=== PATIENT | female | born 1980 | race Caucasian/White ===

== ENCOUNTER 2018-02-04 08:40 | Emergency (ER) | payer OTHER ==
[~2018-02-04] VITALS: Ht 165.1 cm; Wt 63.5 kg
[~2018-02-04 08:40] MED LIST: ATENOLOL 25 MG25 M1; ATENOLOL 50 MG50 M1 PO; NORCO 5-325 TA1 EACH PO; PENICILLIN V P500 MG PO; PENICILLIN VK500 M1 PO; PERCOCET 5-3251 EACH PO; SEASONALE1 EACH
[2018-02-04] MEDS ORDERED: ATENOLOL 50MG T50 M1 PO (10:39)
[2018-02-04] MEDS ORDERED: YASMIN 28 TABL1 EACH PO (10:40)
[2018-02-04] MEDS ORDERED: NORCO 5-325 TA1 EACH PO (11:14)
[2018-02-04] MEDS ORDERED: CYCLOBENZAPRINE5 MG PO (11:14)
[2018-02-04 11:32] VITALS: BP 116/70
== END 2018-02-04 11:32 | disposition home or self-care (01) ==
LOC: ER 08:40
DX: M54.6 Pain in thoracic spine (principal); Z90.49 Acquired absence of other specified parts of digestive tract; Z88.5 Allergy status to narcotic agent; Z88.8 Allergy status to other drugs, medicaments and biological substances

== ENCOUNTER 2018-07-18 20:39 | Emergency (ER) | payer OTHER ==
[~2018-07-18] VITALS: Ht 165.1 cm; Wt 72.6 kg
[~2018-07-18 20:39] MED LIST changes: +ATENOLOL 50MG T50 M1 PO; +CYCLOBENZAPRINE5 MG PO; +YASMIN 28 TABL1 EACH PO
[2018-07-18 21:42] LABS: ABSOLUTE NEUTROPHILS 2.3 thou/uL (1.4-8.2); BASOPHILS 0.5 % (0.0-2.0); EOSINOPHILS 1.7 % (0.0-3.0); HEMOGLOBIN 10.8 gm/dL (12.0-15.0); LYMPHOCYTES 53.2 % (24.0-44.0); MCH 37.4 pg (26.0-34.0); MCHC 34.9 g/dL (28.0-37.0); MCV 107.2 fL (80.0-100.0); MONOCYTES 10.1 % (1.0-8.0); PLATELET COUNT 229 thou/uL (150-400); POLYS 34.5 % (36.0-66.0); RBC 2.89 mil/uL (4.20-5.00); WBC 6.8 thou/uL (4.0-11.0)
[2018-07-18 21:52] LABS: ANION GAP 9 mmol/L (7-16); BUN 16 mg/dL (7-18); CALCIUM 8.8 mg/dL (8.5-10.1); CHLORIDE 102 mmol/L (98-107); CO2 28 mmol/L (21-32); CREATININE 0.7 mg/dL (0.6-1.0); GLUCOSE 90 mg/dL (74-106); POTASSIUM 3.1 mmol/L (3.5-5.1); SODIUM 139 mmol/L (136-145)
[2018-07-18 22:03] LABS: ALBUMIN 3.9 g/dL (3.4-5.0); DIRECT BILIRUBIN < 0.1 mg/dL (<0.1-0.3); SGOT 30 U/L (15-37); SGPT 24 U/L (30-65); TOTAL BILIRUBIN 0.1 mg/dL (<0.1-1.0); TOTAL PROTEIN 7.1 g/dL (6.4-8.2); TROPONIN-I <0.06 ng/mL (<0.06)
[2018-07-18 22:48] VITALS: BP 109/73
--- NOTE | 2018-07-20 22:34 | EKG ---
[place] [address] [facility] [email or web address] [address] ELECTROCARDIOGRAM REPORT Name: Joanie Villegas Room #: [facility]P [facility] [id number] ������������������ Admission: 07/18/18 ������������������ Attend Phys: Discharge: 07/18/18 ������������������ Date of : 76 Report #: [id number] ����������������������������������������������������������������� [id number] THIS REPORT FOR: //name// [facility] ED Test Date: 2018-07-18 Test Time: 21:22:52 Pat Name: Joanie Villegas Department: Room: Gender: F Emr Implementation Specialist: : 1980 Requested By: Era Soriano Order Number: [id number] MD: Franco Smalls Measurements Intervals [place] Rate: 91 P: 72 ID: [id number] QRS: 46 QRSD: 96 T: 25 QT: 387 QTc: 477 Interpretive Statements Sinus rhythm RSR' in V1 or V2, right VCD or RVH Borderline prolonged QT interval No previous ECG available for comparison Electronically Signed On 07-20-2018 22:33:56 CDT by Franco Smalls [email or web address] ��������������������������������������������� <ELECTRONICALLY SIGNED> ���������������������������������������� By: Franco Smalls MD ��������������������������������������������� 07/20/182232 21 21 Franco Smalls MD /ANNELIESE
== END 2018-07-18 22:48 | disposition home or self-care (01) ==
LOC: ER 20:39
PROVIDERS: Emergency Medicine
DX: R60.0 Localized edema (principal); Z90.49 Acquired absence of other specified parts of digestive tract; Z88.5 Allergy status to narcotic agent; Z88.8 Allergy status to other drugs, medicaments and biological substances